=== PATIENT | male | born 1960 | race Caucasian/White ===

== ENCOUNTER 2023-03-17 16:58 | Inpatient (IN) | payer OTHER ==
[2023-03-17] MEDS ORDERED: Ondansetron PF 4 MG/2 ML Vial ONE ×2 (17:56→20:36)
[2023-03-17 18:20] LABS: SARS-CoV-2 NAA Rapid Test Not Detected (NotDetected)
[2023-03-17 18:23] LABS: ALT (SGPT) 12 U/L (8-55); AST (SGOT) 13 U/L (5-34); Albumin 3.5 g/dL (3.4-4.8); Alkaline Phosphatase 69 U/L (40-110); Anion Gap 18 mmol/L (10-20); BUN (Urea Nitrogen) 43 mg/dL (8.4-25.7); Bilirubin, Total 1.7 mg/dL (0.2-1.2); Calc. Creatinine Clearance 0 mL/min (70-130); Calcium 8.5 mg/dL (7.8-10.44); Carbon Dioxide 23 mmol/L (23-31); Chloride 90 mmol/L (98-107); Estimated GFR 23; Globulin 3.3 g/dL (2.4-3.5); Glucose 373 mg/dL (80-115); Lipase 13 U/L (8-78); Potassium 4.8 mmol/L (3.5-5.1); Protein, Total 6.8 g/dL (5.8-8.1); Sodium 126 mmol/L (136-145)
[2023-03-17 18:29] LABS: Troponin I Less than 0.010 ng/mL (< 0.028)
[2023-03-17 18:37] LABS: Hematocrit 39.4 % (38.8-50.0); Hemoglobin 13.3 g/dL (13.5-17.5); Mean Corpuscular HGB CONC 33.8 g/dL (32.0-36.0); Mean Platelet Volume 11.5 fl (7.4-10.4); Platelet Count 209 10x3/uL (150-450); RBC Distribution Width 13.3 % (11.5-14.5); Red Blood Cell (RBC) Count 4.58 10x6/uL (4.32-5.72); White Blood Cell (WBC) Count 17.4 10x3/uL (3.5-10.5)
[2023-03-17] MEDS ORDERED: Morphine 4 MG/ML VIAL ONE (19:05)
[2023-03-17] MEDS ORDERED: cefTRIAXone (ROCEPHIN) 2 GM VIAL ONE (19:05)
[2023-03-17] MEDS ORDERED: Azithromycin 500 MG VIAL ONE (19:05)
[2023-03-17] MEDS ORDERED: Ipratropium/Albuterol 3 ML NEB ONE (19:06)
[2023-03-17 19:31] LABS: Band 21 % (5-11); Lymphocytes 5 % (21-51); Monocytes 6 % (0-10)
[2023-03-17 19:40] LABS: Neutrophil 67 % (42-75); Platelet Adequacy Comment Appears Adequate; RBC Morph Comment Within Normal Limits
[2023-03-17 19:41] LABS: Dohle Bodies SLIGHT; Large Platelets SLIGHT (None Seen)
[2023-03-17 19:42] LABS: MDiff Complete? YES; Platelet Clumps SLIGHT
[2023-03-17] MEDS ORDERED: Communication Order-Pharmacy FS PRN (21:23)
[2023-03-17] MEDS ORDERED: Senokot S 8.6-50 MG TAB PO PRN (21:29)
[2023-03-17] MEDS ORDERED: Acetaminophen 325 MG TAB PO PRN (21:29)
[2023-03-17] MEDS ORDERED: HYDROcodone/Acetaminophen 5/325 mg Tablet PO PRN (21:29)
[2023-03-17] MEDS ORDERED: Calcium Carbonate 500 MG ChewTAB PO PRN (21:29)
[2023-03-17] MEDS ORDERED: Glucagon 1 MG/ML KIT IM PRN (21:33)
[2023-03-17] MEDS ORDERED: Dextrose 5% in Water 1,000 ML IV PRN (21:33)
[2023-03-17] MEDS ORDERED: Dextrose 50% Abboject 50 ML SYRINGE SLOW IVP PRN (21:33)
[2023-03-17] MEDS ORDERED: Insulin Regular 300 UNITS/3 ML VIAL ONE (22:10)
[2023-03-17] MEDS ORDERED: Insulin NPH Human Isophane 100 UNITS/ML (10 ML VIAL) SC SCH (22:15)
[2023-03-17 22:50] LABS: Magnesium 1.5 mg/dL (1.6-2.6)
[2023-03-17] MEDS ORDERED: Promethazine HCl 12.5 MG, Admixture Fee 1 EACH in Sodium Chloride 0.9% 50 ML IVPB SCH (23:45)
[2023-03-18 00:18] LABS: Bilirubin Neg (Negative); Blood, Urine 25 (Negative); Clarity Slightly Cloudy (Clear); Glucose, Urine (Dipstick) 250 mg/dL (Negative); Ketone, Urine 5 mg/dL (Negative); Leukocyte 100 (Negative); Nitrite Positive (Negative); Protein, Urine (Dipstick) 100 mg/dl (Neg-Trace); Urobilinogen Normal mg/dL (Less than 2)
[2023-03-18 00:26] LABS: Bacteria/HPF 2+ HPF (None Seen); CAUTI Indications for Culture Fever or rigors; RBC/HPF 0-3 HPF (0-3); Squamous Epithelial 0-3 HPF (0-3)
[2023-03-18 00:27] LABS: Urine Culture Reflex No No
[2023-03-18 01:12] VITALS: BMI 34.7
[2023-03-18 01:20] LABS: Lactic Acid 2.6 mmol/L (0.5-2.2)
[2023-03-18] MEDS ORDERED: Magnesium 2 GM/50 ML(in water) 2 GM in Premix 1 BAG IVPB SCH (01:30)
[2023-03-18] MEDS ORDERED: Sodium Chloride 0.9% 1,000 ML IV SCH (01:30)
[2023-03-18] MEDS: Sodium Chloride 0.9% 1,500 ML IV SCH ×3 (03:40→05:11)
[2023-03-18] MEDS: HumaLOG 300 UNITS/3 ML VIAL SC PRN ×4 (03:45→17:14)
[2023-03-18] MEDS: Sodium Chloride 0.9% 1,000 ML IV SCH ×2 (05:02→10:23)
[2023-03-18 06:45] LABS: Hematocrit 35.5 % (38.8-50.0); Hemoglobin 11.8 g/dL (13.5-17.5); MDiff Complete? YES; Mean Corpuscular HGB CONC 33.2 g/dL (32.0-36.0); Mean Corpuscular Hemoglobin 29.3 pg (27.0-33.0); Mean Corpuscular Volume 88.1 fl (81.2-95.1); Mean Platelet Volume 11.8 fl (7.4-10.4); Platelet Count 191 10x3/uL (150-450); RBC Distribution Width 13.5 % (11.5-14.5); Red Blood Cell (RBC) Count 4.03 10x6/uL (4.32-5.72); White Blood Cell (WBC) Count 14.3 10x3/uL (3.5-10.5)
[2023-03-18 06:50] LABS: Anion Gap 14 mmol/L (10-20); BUN (Urea Nitrogen) 46 mg/dL (8.4-25.7); Calc. Creatinine Clearance 56 mL/min (70-130); Calcium 8.6 mg/dL (7.8-10.44); Carbon Dioxide 23 mmol/L (23-31); Chloride 96 mmol/L (98-107); Estimated GFR 30; Glucose 339 mg/dL (80-115); Potassium 4.1 mmol/L (3.5-5.1); Sodium 129 mmol/L (136-145)
[2023-03-18 07:10] LABS: Band 17 % (5-11); Eosinophils 2 % (0-10); Lymphocytes 2 % (21-51); Monocytes 3 % (0-10); Neutrophil 76 % (42-75)
[2023-03-18 07:11] LABS: Platelet Adequacy Comment Appears Adequate; RBC Morph Comment Within Normal Limits
[2023-03-18] MEDS: Insulin NPH Human Isophane 100 UNITS/ML (10 ML VIAL) SC SCH ×2 (10:22→17:14)
[2023-03-18] MEDS: Enoxaparin 40 MG (0.4 mL) SYRINGE SC SCH (10:23)
[2023-03-18 15:29] LABS: Legionella Urinary Ag Negative (Negative); Strep pneumo Urine Ag NEGATIVE (NEGATIVE)
[2023-03-18] MEDS ORDERED: Ipratropium/Albuterol 3 ML NEB NEB PRN (16:30)
[2023-03-18] MEDS ORDERED: cefTRIAXone\\ROCEPHIN 2 GM in Sodium Chloride 0.9% 100 ML IVPB SCH (20:00)
[2023-03-18 20:21] LABS: Hemoglobin A1c 11.2 % (4.0-6.0)
[2023-03-18] MEDS ORDERED: Azithromycin 500 MG in Sodium Chloride 0.9% 250 ML 250 ML IVPB SCH (21:00)
[2023-03-19] MEDS ORDERED: Promethazine HCl 12.5 MG, Admixture Fee 1 EACH in Sodium Chloride 0.9% 50 ML IVPB PRN (01:15)
[2023-03-19 05:44] LABS: #Basophils 0.1 10x3/uL (0.0-0.2); #Eosinphils 0.2 10x3/uL (0.0-0.5); #Monocytes 0.6 10x3/uL (0.0-1.1); #Neutrophils 9.2 10x3/uL (1.5-8.4); %Basophils 0.4 % (0.0-2.0); %Eosinophils 1.9 % (0.0-6.0); %Lymphocytes 9.5 % (18.0-47.0); %Monocytes 5.3 % (0.0-10.0); %Neutrophils 82.4 % (40.0-75.0); Hematocrit 34.6 % (38.8-50.0); Hemoglobin 11.4 g/dL (13.5-17.5); Mean Corpuscular HGB CONC 32.9 g/dL (32.0-36.0); Mean Corpuscular Hemoglobin 29.4 pg (27.0-33.0); Mean Corpuscular Volume 89.2 fl (81.2-95.1); Mean Platelet Volume 11.8 fl (7.4-10.4); Platelet Count 217 10x3/uL (150-450); RBC Distribution Width 13.4 % (11.5-14.5); Red Blood Cell (RBC) Count 3.88 10x6/uL (4.32-5.72); White Blood Cell (WBC) Count 11.2 10x3/uL (3.5-10.5)
[2023-03-19 06:00] LABS: Anion Gap 13 mmol/L (10-20); BUN (Urea Nitrogen) 31 mg/dL (8.4-25.7); Calc. Creatinine Clearance 96 mL/min (70-130); Calcium 9.6 mg/dL (7.8-10.44); Carbon Dioxide 27 mmol/L (23-31); Chloride 101 mmol/L (98-107); Estimated GFR 57; Glucose 219 mg/dL (80-115); Magnesium 2.3 mg/dL (1.6-2.6); Potassium 4.6 mmol/L (3.5-5.1); Sodium 136 mmol/L (136-145)
[2023-03-19] MEDS: Insulin NPH Human Isophane 100 UNITS/ML (10 ML VIAL) SC SCH (06:14)
[2023-03-19 06:37] VITALS: BP 166/78
[2023-03-19 08:15] VITALS: TEMP 97.8
[2023-03-19] MEDS: Enoxaparin 40 MG (0.4 mL) SYRINGE SC SCH (08:55)
== END 2023-03-19 15:07 | disposition home or self-care (01) | DRG 871 ==
LOC: CSHERS 16:58 → CSHTELE 19:23 → UNDOADMIN 03-18 01:09
PROVIDERS: ADMIT Family Medicine; ATTEND Internal Medicine
DX: A41.9 Sepsis, unspecified organism (principal); J18.9 Pneumonia, unspecified organism; N17.9 Acute kidney failure, unspecified; E87.1 Hypo-osmolality and hyponatremia; E11.65 Type 2 diabetes mellitus with hyperglycemia; E11.319 Type 2 diabetes mellitus with unspecified diabetic retinopathy without macular edema; E83.42 Hypomagnesemia; I10 Essential (primary) hypertension; N30.90 Cystitis, unspecified without hematuria; E11.21 Type 2 diabetes mellitus with diabetic nephropathy; Z88.0 Allergy status to penicillin; Z11.52 Encounter for screening for COVID-19; Z98.890 Other specified postprocedural states
CPT/HCPCS: 36415; 36416; 71045; 71250; 80048; 80053; 81001; 83036; 83605; 83690; 83735; 83880; 84484; 85025; 87040; 87449; 87899; 93005; 94640; 94760; 96361; 96365; 96367; 96375; 96376; J0456; J0696; J1650; J1815; J2270; J2405; J2550; J3475; J3490; J7050; J7620